=== PATIENT | female | born 1980 | race African-American/Black ===

== ENCOUNTER 2017-05-21 18:46 | Emergency (ER) | payer OTHER ==
[~2017-05-21] VITALS: Ht 170.2 cm; Wt 60.1 kg
[2017-05-21 20:12] LABS: Nucleated Red Blood Cells % 0.1 %
[2017-05-21 20:18] LABS: Basophils # (auto) 0.2 uL; Basophils % (auto) 1.7 % (0.0-2.0); Eosinophils # (auto) 0.5 uL; Eosinophils % (auto) 3.8 % (0.0-7.0); Hematocrit 32.6 % (36.0-46.0); Hemoglobin 10.2 g/dL (12.2-16.2); Lymphocytes % (auto) 14.6 % (10.0-50.0); Mean Corpuscular Hemoglobin 23.4 pg (28.0-32.0); Mean Corpuscular Hgb Conc. 31.3 g/dL (32.0-36.0); Mean Corpuscular Volume 74.9 fL (80.0-100.0); Monocytes # (auto) 0.9 uL; Monocytes % (auto) 6.7 % (0.0-12.0); Neutrophils # (auto) 10.3 uL; Neutrophils % (auto) 73.2 % (37.0-80.0); Platelet Count (auto) 521 10^3/uL (140-450); Red Blood Cells 4.35 10^6/uL (4.0-5.20)
[2017-05-21 20:20] LABS: Albumin 3.7 g/dL (3.4-5.0); Calcium 9.2 mg/dL (8.5-10.1); Potassium 3.8 mmol/L (3.5-5.1)
[2017-05-21 20:22] LABS: BUN/Creatinine Ratio 15.4
[2017-05-21 20:23] LABS: Bilirubin, Total 0.2 mg/dL (0.2-1.0); Total Protein 6.8 g/dL (6.4-8.2)
[2017-05-21 20:30] LABS: Red Cell Distribution Width 20.2 % (11.8-14.3)
[2017-05-21 20:33] LABS: Urine Bacteria FEW /hpf (None Seen); Urine Blood 3+ /uL (Negative); Urine Mucus FEW (None Seen); Urine Specific Gravity 1.022 (1.001-1.035); Urine WBC 1 /hpf (0 - 5)
[2017-05-22] MEDS ORDERED: SODIUM CHLORIDE 0.9% 1,000 ML IV ONE
[2017-05-22 02:43] VITALS: BP 112/68
== END 2017-05-22 02:26 | disposition home or self-care (01) ==
LOC: ER 18:46
DX: O20.0 Threatened abortion (principal); O99.511 Diseases of the respiratory system complicating pregnancy, first trimester; J45.909 Unspecified asthma, uncomplicated; Z3A.08 8 weeks gestation of pregnancy; R53.83 Other fatigue
CPT/HCPCS: 36415; 76801; 80053; 81001; 84702; 85025; 96360; 99285; J7030

== ENCOUNTER 2017-07-21 08:38 | Emergency (ER) | payer OTHER ==
[~2017-07-21] VITALS: Ht 170.2 cm; Wt 61.2 kg
[2017-07-21 11:03] LABS: Urine Bacteria FEW /hpf (None Seen); Urine Blood Negative /uL (Negative); Urine Mucus FEW (None Seen); Urine Specific Gravity 1.028 (1.001-1.035); Urine WBC 2 /hpf (0 - 5)
[2017-07-21 12:07] VITALS: BP 146/64
== END 2017-07-21 13:18 | disposition home or self-care (01) ==
LOC: ER 08:41
DX: O34.12 Maternal care for benign tumor of corpus uteri, second trimester (principal); O99.512 Diseases of the respiratory system complicating pregnancy, second trimester; J45.909 Unspecified asthma, uncomplicated; Z3A.15 15 weeks gestation of pregnancy
CPT/HCPCS: 36415; 76805; 81001; 84702

== ENCOUNTER 2019-03-29 23:02 | Emergency (ER) | payer MEDICAID, OTHER ==
[~2019-03-29] VITALS: Ht 170.2 cm; Wt 59.0 kg
[2019-03-29 23:56] VITALS: BP 116/83
== END 2019-03-30 05:21 | disposition home or self-care (01) ==
LOC: EDBD 23:02 → ER 23:02
DX: S43.401A Unspecified sprain of right shoulder joint, initial encounter (principal); J45.909 Unspecified asthma, uncomplicated; V43.62XA Car passenger injured in collision with other type car in traffic accident, initial encounter; Y93.89 Activity, other specified; Y92.89 Other specified places as the place of occurrence of the external cause; Y99.8 Other external cause status
CPT/HCPCS: 73030